=== PATIENT | female | born 1995 | race Two or more races ===

== ENCOUNTER 2021-07-02 21:14 | Emergency (ER) | payer OTHER ==
[~2021-07-02] VITALS: Ht 157.5 cm; Wt 59.0 kg
[2021-07-03 04:04] VITALS: BP 144/86
== END 2021-07-03 04:05 | disposition home or self-care (01) ==
LOC: ER 21:14
DX: S00.83XA Contusion of other part of head, initial encounter (principal); W22.09XA Striking against other stationary object, initial encounter; Y93.89 Activity, other specified; Y92.520 Airport as the place of occurrence of the external cause
CPT/HCPCS: 81025; 99285